=== PATIENT | female | born 2000 | race Caucasian/White ===

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

== ENCOUNTER 2020-03-12 15:30 | Inpatient (IN) | payer OTHER ==
[2020-03-12] MEDS ORDERED: OXYTOCIN 20 UNITS in 0.9% NS 20 UNIT/1,000 ML INFUS.BAG IV ONE (15:57)
[2020-03-12] MEDS ORDERED: DEXTROSE 5%-LACTATED RINGERS 1,000 ML IV SCH (16:00)
[2020-03-12] MEDS ORDERED: LIDOCAINE HCL 1% PRESERVATIVE FREE - 30ML VIAL ONE (16:32)
[2020-03-12 16:53] VITALS: BMI 23.6
[2020-03-12] MEDS ORDERED: ACETAMINOPHEN 325 MG TABLET (FP) ONE (17:10)
[2020-03-12] MEDS ORDERED: IBUPROFEN 600 MG TABLET (FP) PO ONE (17:10)
[2020-03-12] MEDS ORDERED: IBUPROFEN 600 MG TABLET (FP) PO PRN (17:11)
[2020-03-12] MEDS ORDERED: BENZOCAINE 28 GM HEMORRHOIDAL OINTMENT TP PRN (17:11)
[2020-03-12] MEDS ORDERED: BENZOCAINE 20% 57 GM BOTTLE TP PRN (17:11)
[2020-03-12] MEDS ORDERED: WITCH HAZEL 50% (TUCKS) 40 PAD/JAR PAD TP PRN (17:11)
[2020-03-12] MEDS ORDERED: BISACODYL 10 MG SUPP.RECT RC PRN (17:11)
[2020-03-12] MEDS ORDERED: METHYLERGONOVINE MALEATE 0.2 MG/1 ML AMP IM PRN (17:11)
[2020-03-12 17:14] LABS: CORD BASE EXCESS -6.6 mmol/L (0-2); CORD HCO3 20.6 mmHg (20-29); CORD PCO2 46.7 mmHg (30-78); CORD pH 7.262 (7.14-7.44)
[2020-03-12 17:15] LABS: CORD HCO3 24.3 mmHg (20-29); CORD PCO2 60.7 mmHg (30-78)
[2020-03-12] MEDS ORDERED: OXYTOCIN 20 UNITS in 0.9% NS 20 UNIT/1,000 ML INFUS.BAG IV SCH (17:15)
[2020-03-12] MEDS: ACETAMINOPHEN 325 MG TABLET (FP) PO PRN (17:15)
[2020-03-12 18:02] LABS: BASO % 1.2 % (0-2.0); HEMATOCRIT 32.3 % (32.4-45.2); HEMOGLOBIN 10.3 GM/dL (10.7-15.3); LYMPH % 9.2 % (8-40); MCH 23.7 pg (25.7-33.7); MCHC 31.9 g/dl (32.0-36.0); MEAN CELL VOLUME 74.3 fl (80-96); MEAN PLT VOLUME 8.2 fl (7.5-11.1); MONO % 2.9 % (3.8-10.2); NEUT % 86.7 % (42.8-82.8); PLATELET COUNT 218 K/MM3 (134-434); RBC 4.35 M/mm3 (3.60-5.2); RDW 15.4 % (11.6-15.6); WHITE BLOOD COUNT 14.2 K/mm3 (4.0-10.0)
[2020-03-12 18:09] LABS: INR 0.85 (0.83-1.09); PROTHROMBIN TIME (PATIENT) 10.5 SEC (9.7-13.0)
[2020-03-12 18:12] LABS: ACTIVATED PTT 26.5 SECONDS (25.2-36.5)
[2020-03-12] MEDS: FERROUS SO4 325 MG TABLET (FP) PO SCH (18:21)
[2020-03-12 18:23] LABS: CALCIUM 8.3 mg/dL (8.5-10.1)
[2020-03-12 18:24] LABS: BLOOD UREA NITROGEN 8.3 mg/dL (7-18)
[2020-03-12 18:27] LABS: CREATININE 0.6 mg/dL (0.55-1.3)
[2020-03-12] MEDS ORDERED: METHYLERGONOVINE MALEATE 0.2 MG/1 ML AMP IM ONE (19:30)
[2020-03-13] MEDS: FERROUS SO4 325 MG TABLET (FP) PO SCH ×2 (07:50→17:50)
[2020-03-13] MEDS: ACETAMINOPHEN 325 MG TABLET (FP) PO PRN ×2 (07:52→22:08)
[2020-03-13] MEDS: PRENATAL VITAMINS W/ FOLIC ACID TABLET (FP) PO SCH (09:09)
[2020-03-13 09:33] LABS: BASO % 0.5 % (0-2.0); EOS % 0.2 % (0-4.5); HEMATOCRIT 25.5 % (32.4-45.2); HEMOGLOBIN 8.1 GM/dL (10.7-15.3); LYMPH % 21.1 % (8-40); MCH 23.7 pg (25.7-33.7); MCHC 31.9 g/dl (32.0-36.0); MEAN CELL VOLUME 74.3 fl (80-96); MEAN PLT VOLUME 7.7 fl (7.5-11.1); MONO % 2.8 % (3.8-10.2); NEUT % 75.4 % (42.8-82.8); PLATELET COUNT 166 K/MM3 (134-434); RBC 3.43 M/mm3 (3.60-5.2); RDW 15.6 % (11.6-15.6); WHITE BLOOD COUNT 10.7 K/mm3 (4.0-10.0)
[2020-03-13] MEDS ORDERED: SENNOSIDES/DOCUSATE COMBO (SENNA PLUS) TABLET (UD) PO PRN (22:00)
[2020-03-14] MEDS: PRENATAL VITAMINS W/ FOLIC ACID TABLET (FP) PO SCH (09:11)
[2020-03-14] MEDS: FERROUS SO4 325 MG TABLET (FP) PO SCH (09:11)
[2020-03-14 09:46] VITALS: BP 114/63; PULSE 87; TEMP 98
== END 2020-03-14 12:30 | disposition home or self-care (01) | DRG 560 ==
LOC: JLDR 15:30 → J3W 18:09
PROVIDERS: ADMIT Obstetrics & Gynecology; ATTEND Obstetrics & Gynecology
PROC: 10E0XZZ Delivery of Products of Conception, External Approach (ICD-10-PCS; principal; 2020-03-12)
PROC: 0W8NXZZ Division of Female Perineum, External Approach (ICD-10-PCS; 2020-03-12)
DX: O99.02 Anemia complicating childbirth (principal); D64.9 Anemia, unspecified; Z3A.38 38 weeks gestation of pregnancy; Z37.0 Single live birth; Z86.11 Personal history of tuberculosis; Z91.018 Allergy to other foods
CPT/HCPCS: 36415; 36600; 59409; 71046-TC-FY; 80048; 82803; 85025; 85610; 85730; 86850; 86900; 86901; C9803; U0003

== ENCOUNTER 2020-10-31 18:39 | Emergency (ER) | payer OTHER ==
[2020-10-31 18:49] VITALS: BP 109/59; PULSE 79; TEMP 98.3; BMI 22.6
== END 2020-10-31 19:30 | disposition home or self-care (01) ==
LOC: JERFT 18:39
DX: L03.213 Periorbital cellulitis (principal); T63.441A Toxic effect of venom of bees, accidental (unintentional), initial encounter
CPT/HCPCS: 99281-25